=== PATIENT | female | born 2000 | race Caucasian/White ===

== ENCOUNTER 2018-01-10 23:33 | Emergency (ER) | payer OTHER ==
[2018-01-11] MEDS ORDERED: NS 0.9% 1000 ML* 1,000 ML IV ONE (01:43)
[2018-01-11] MEDS ORDERED: Metoclopramide IV* 5 MG/ML 2 ML VIAL IV ONE (01:43)
[2018-01-11] MEDS ORDERED: Ketorolac INJ* 30 MG/ML 1 ML VIAL IV ONE (01:43)
[2018-01-11] MEDS ORDERED: diPHENhydraMINE IV* 50 MG/ML 1 ml VIAL (BENADRYL) IV ONE (01:44)
[2018-01-11 02:41] LABS: ABS Basophils 0.1 10^3/ul (0-0.2); ABS Eosinophils 0.1 10^3/ul (0-0.6); ABS Lymphocytes 2.1 10^3/ul (1.0-4.8); ABS Monocytes 0.6 10^3/ul (0-0.8); ABS Neutrophils 5.6 10^3/ul (1.5-7.7); ABS Nucleated RBC 0 10^3/ul; Eosinophil % 0.6 % (0-6); Hematocrit 43 % (35-47); Hemoglobin 15.1 g/dl (12.0-16.0); Lymphocyte % 25.2 % (25-47); Mean Corpuscular HGB Conc 35 g/dl (31-36); Mean Corpuscular Hemoglobin 31 pg (27-31); Mean Corpuscular Volume 87 fL (80-97); Mean Platelet Volume 9 um3 (7.4-10.4); Nucleated Red Blood Cells % 0.1; Platelet Count 236 10^3/ul (150-450); Red Blood Count 4.93 10^6/ul (4.0-5.4); Red Cell Distribution Width 12 % (10.5-15); White Blood Count 8.4 10^3/ul (3.5-10.8)
[2018-01-11 02:59] LABS: EGFR Non-African American 87.3 (>60)
--- NOTE | 2018-01-11 04:37 | ED ---
Narda Hanson Thomas, scribed for Holli Grant MD on 01/11/18 at 0345 . Headache - HPI Summary HPI Summary: The patient is a 17 year old female presenting with daily posterior headaches for the last three weeks. OTC pain medications do not alleviate her pain. She also complains of nausea and photophobia. She denies numbness, tingling, fever, and vomiting. The patient went to a hospital in her hometown in [place] in the last three weeks. She did not get a CT Brain. She is currently menstruating. - History Of Current Complaint Chief Complaint: EDHeadache Stated Complaint: HEAD/CHEST PAIN Time Seen by Provider: 01/11/18 01:22 Hx Obtained From: Patient Onset/Duration: Started weeks ago, Still Present Timing: Constant Location of Headache: Other: - Posterior Aggravating Factor: Bright Lights Allevating Factors: Nothing Associated Signs And Symptoms: Nausea, Other (Noted In Comments) - Photophobia; NEGATIVE: numbness, tingling, fever, vomiting - Allergies/Home Medications Allergies/Adverse Reactions: Allergies Allergy/AdvReac Type Severity Reaction Status Date / Time No Known Allergies Allergy Verified 01/10/18 23:38 PMH/Surg Hx/FS Hx/Imm Hx Sensory History: Denies: Hx Legally Blind, Hx Deafness EENT History: Denies: Hx Deafness Neurological History: Reports: Hx Headaches Denies: Hx Migraine - Immunization History Date of Influenza Vaccine: has not received Infectious Disease History: No Infectious Disease History: Denies: Traveled Outside the [place] in Last 30 Days - Family History Known Family History: Positive: Other - Migraines - Social History Alcohol Use: Occasionally Substance Use Type: Reports: None Smoking Status (MU): Never Smoked Tobacco Review of Systems Negative: Fever Positive: Photophobia Positive: Nausea. Negative: Vomiting Neurological: Negative - tingling Positive: Headache. Negative: Numbness All Other Systems Reviewed And Are Negative: Yes Physical Exam - Summary Physical Exam Summary: VITAL SIGNS: Reviewed. GENERAL: Patient is a well-developed and nourished female who is lying comfortable in the stretcher. Patient is not in any acute respiratory distress. HEAD AND FACE: No signs of trauma. No ecchymosis, hematomas or skull depressions. No sinus tenderness. EYES: PERRLA, EOMI x 2, No injected conjunctiva, no nystagmus. EARS: Hearing grossly intact. Ear canals and tympanic membranes are within normal limits. MOUTH: Oropharynx within normal limits. NECK: Supple, trachea is midline, no adenopathy, no JVD, no carotid bruit, no c- spine tenderness, neck with full ROM. CHEST: Symmetric, no tenderness at palpation LUNGS: Clear to auscultation bilaterally. No wheezing or crackles. CVS: Regular rate and rhythm, S1 and S2 present, no murmurs or gallops appreciated. ABDOMEN: Soft, non-tender. No signs of distention. No rebound no guarding, and no masses palpated. Bowel sounds are normal. EXTREMITIES: FROM in all major joints, no edema, no cyanosis or clubbing. NEURO: Alert and oriented x 3. No acute neurological deficits. Speech is normal and follows commands. SKIN: Dry and warm Triage Information Reviewed: Yes Vital Signs On Initial Exam: Initial Vitals Temp Pulse Resp BP Pulse Ox 97.8 F 95 18 142/97 100 01/10/18 23:35 01/10/18 23:35 01/10/18 23:35 01/10/18 23:35 01/10/18 23:35 Vital Signs Reviewed: Yes Diagnostics - Vital Signs Vital Signs Temp Pulse Resp BP Pulse Ox 01/11/18 03:12 59 98 01/11/18 03:11 105/69 01/10/18 23:35 97.8 F 95 18 142/97 100 - Laboratory Lab Results: Lab Results 01/11/18 01/11/18 Range/Units 02:20 02:20 WBC 8.4 (3.5-10.8) 10^3/ul RBC 4.93 (4.0-5.4) 10^6/ul Hgb 15.1 (12.0-16.0) g/dl Hct 43 (35-47) % MCV 87 (80-97) fL MCH 31 (27-31) pg MCHC 35 (31-36) g/dl RDW 12 (10.5-15) % Plt Count 236 (150-450) 10^3/ul MPV 9 (7.4-10.4) um3 Neut % (Auto) 66.8 (38-83) % Lymph % (Auto) 25.2 (25-47) % [place] % (Auto) 6.6 (0-7) % Eos % (Auto) 0.6 (0-6) % Baso % (Auto) 0.8 (0-2) % Absolute Neuts (auto) 5.6 (1.5-7.7) 10^3/ul Absolute Lymphs (auto) 2.1 (1.0-4.8) 10^3/ul Absolute Monos (auto) 0.6 (0-0.8) 10^3/ul Absolute Eos (auto) 0.1 (0-0.6) 10^3/ul Absolute Basos (auto) 0.1 (0-0.2) 10^3/ul Absolute Nucleated RBC 0 10^3/ul Nucleated RBC % 0.1 Sodium 139 (133-145) mmol/L Potassium 3.7 (3.5-5.0) mmol/L Chloride 105 (101-111) mmol/L Carbon Dioxide 24 (22-32) mmol/L Anion Gap 10 (2-11) mmol/L BUN 13 (6-24) mg/dL Creatinine 0.84 (0.51-0.95) mg/dL Est GFR ( Amer) 112.3 (>60) Est GFR (Non-Af Amer) 87.3 (>60) BUN/Creatinine Ratio 15.5 (8-20) Glucose 102 H (70-100) mg/dL Calcium 9.8 (8.6-10.3) mg/dL Total Bilirubin 0.50 (0.2-1.0) mg/dL AST 17 (13-39) U/L ALT 14 (7-52) U/L Alkaline Phosphatase 64 (34-104) U/L Total Protein 7.7 (6.4-8.9) g/dL Albumin 4.5 (3.2-5.2) g/dL Globulin 3.2 (2-4) g/dL Albumin/Globulin Ratio 1.4 (1-3) Beta HCG, Quant < 0.60 mIU/mL Result Diagrams: 01/11/18 02:20 01/11/18 02:20 Lab Statement: Any lab studies that have been ordered have been reviewed, and results considered in the medical decision making process. - CT CT Brain CT Interpretation: No Acute Changes - Normal brain. No acute intracranial pathology. No hemorrhage. No obvious infarct or mass. Osseous sstructures are intact. CT Interpretation Completed By: Radiologist - EKG 23:42 Cardiac Rate: NL EKG Rhythm: Sinus Rhythm - at 76 BPM EKG Interpretation: Normal axis. Normal intervals. No ischemic change. Re-Evaluation - Re-Evaluation First Eval Comment: Results discussed. Patient will be discharged. Headache Course/Dx - Course Assessment/Plan: The patient is a 17 year old female presenting with daily posterior headaches for the last three weeks. In the ED course, the patient was given Benadryl, IV fulids, Toradol, and Reglan. Bloodwork and EKG were obtained. CT Brain shows Normal brain. No acute intracranial pathology. No hemorrhage. NO obvious infarct or mass. Osseous structures are intact. The patient was discharged home with neurology follow up. - Diagnoses Provider Diagnoses: Headache Discharge - Sign-Out/Discharge Documenting (check all that apply): Discharge - Discharge Plan Condition: Stable Disposition: HOME Patient Education Materials: General Headache (ED) Referrals: Kirill Irving MD [Medical Doctor] - 3 Days Additional Instructions: Follow up with Dr. Irving, neurology, in three days. Return to the emergency department for any new or worsening symptoms. The documentation as recorded by the Narda carrasquillo Thomas accurately reflects the service I personally performed and the decisions made by , Holli Grant MD.
[2018-01-11 04:41] VITALS: BP 123/85
--- NOTE | 2018-01-11 07:59 | RAD ---
Indication: Headaches. CT of the brain was performed without IV contrast. Ventricular structures are midline. No midline shift is noted. The extra-axial spaces are unremarkable. There is no evidence of intracranial mass or hemorrhage. No other high or low density lesions are identified. Mastoid air cells and paranasal sinuses are unremarkable. IMPRESSION: No intracranial mass or hemorrhage is noted.
== END 2018-01-11 04:40 | disposition home or self-care (01) ==
LOC: ED 23:33
DX: R51 Headache (principal); R11.0 Nausea
CPT/HCPCS: 36415; 70450; 80053; 84702; 85025; 93005; 96374; 96375; 99284; J1200; J1885; J2765

== ENCOUNTER 2018-01-13 19:38 | Emergency (ER) | payer OTHER ==
[2018-01-13 22:00] LABS: Hematocrit 46 % (35-47); Hemoglobin 16.3 g/dl (12.0-16.0); Mean Corpuscular HGB Conc 35 g/dl (31-36); Mean Corpuscular Hemoglobin 30 pg (27-31); Mean Corpuscular Volume 86 fL (80-97); Mean Platelet Volume 8.5 um3 (7.4-10.4); Platelet Count 266 10^3/ul (150-450); Red Blood Count 5.36 10^6/ul (4.0-5.4); Red Cell Distribution Width 12 % (10.5-15); White Blood Count 9.7 10^3/ul (3.5-10.8)
[2018-01-13 22:19] LABS: EGFR Non-African American 75.8 (>60)
[2018-01-13 22:24] LABS: ABS Basophils 0.1 10^3/ul (0-0.2); ABS Eosinophils 0.2 10^3/ul (0-0.6); ABS Lymphocytes 2.9 10^3/ul (1.0-4.8); ABS Monocytes 0.6 10^3/ul (0-0.8); ABS Nucleated RBC 0 10^3/ul; Eosinophil % 1.7 % (0-6); Lymphocyte % 29.5 % (25-47); Nucleated Red Blood Cells % 0.1
--- NOTE | 2018-01-13 22:33 | ED ---
HPI Chest Pain - HPI Summary HPI Summary: 17-year-old female presents with chest pain and headache for the past 2 months. She states the chest pain is intermittent. She states it is a pressure-like on the left side of her chest. Does not radiate anywhere. She denies any shortness of breath. She denies any palpitations. She is nonsmoker. She is on control. She denies any family history of cardiac disease. She has no medical conditions. Nothing makes it better or worse. She is similar also had a headache for the past 2 months. She is a headache in the back of her head. Sclerae throbbing sensation. She tried ibuprofen and Tylenol Excedrin and something a neurologist prescribed without relief. She has had a normal head CT 3 days ago. She was photophobia. She admits to occasional nausea. She admits to sensitivity. She has family history of migraines. She does not want any medication that makes her drowsy. She also states she has not been eating very well. States this has been going on for couple months. She has not seen anyone about this. She denies any weakness. - History of Current Complaint Chief Complaint: EDChestWallPain Time Seen by Provider: 01/13/18 22:06 Pain Intensity: 5 - Allergy/Home Medications Allergies/Adverse Reactions: Allergies Allergy/AdvReac Type Severity Reaction Status Date / Time No Known Allergies Allergy Verified 01/13/18 19:51 Home Medications: Home Medications Norethindrone-E.estradiol-Iron [Junel Fe 11/12 1-20 mg-Mcg] 1 tab PO DAILY [History Confirmed 01/13/18] PMH/Surg Hx/FS Hx/Imm Hx Endocrine/Hematology History: Denies: Hx Anticoagulant Therapy Cardiovascular History: Denies: Hx Hypertension Sensory History: Denies: Hx Legally Blind, Hx Deafness Opthamlomology History: Denies: Hx Legally Blind Neurological History: Reports: Hx Headaches Denies: Hx Migraine - Immunization History Date of Influenza Vaccine: has not received Infectious Disease History: No Infectious Disease History: Denies: Traveled Outside the [place] in Last 30 Days - Family History Known Family History: Positive: Other - Migraines Negative: Cardiac Disease - Social History Alcohol Use: Occasionally Substance Use Type: Reports: None Smoking Status (MU): Never Smoked Tobacco Review of Systems Negative: Fever Positive: Chest Pain Negative: Shortness Of Breath Positive: Headache All Other Systems Reviewed And Are Negative: Yes Physical Exam Triage Information Reviewed: Yes Vital Signs On Initial Exam: Initial Vitals Temp Pulse Resp BP Pulse Ox 98.2 F 128 18 142/108 99 01/13/18 19:49 01/13/18 19:49 01/13/18 19:49 01/13/18 19:49 01/13/18 19:49 Vital Signs Reviewed: Yes Appearance: Positive: Well-Appearing Skin: Positive: Warm, Dry Head/Face: Positive: Normal Head/Face Inspection Eyes: Positive: Normal, EOMI, WALTER, Conjunctiva Clear ENT: Positive: Normal ENT inspection, Pharynx normal, TMs normal Respiratory/Lung Sounds: Positive: Clear to Auscultation, Breath Sounds Present , Other - Nonreproducible chest pain Cardiovascular: Positive: Normal, RRR Abdomen Description: Positive: Nontender, Soft Bowel Sounds: Positive: Present Musculoskeletal: Positive: Normal Neurological: Positive: Normal Psychiatric: Positive: Normal Diagnostics - Vital Signs Vital Signs Temp Pulse Resp BP Pulse Ox 01/13/18 22:11 98.8 F 105 7 99 01/13/18 19:49 98.2 F 128 18 142/108 99 - Laboratory Lab Results: Lab Results 01/13/18 01/13/18 01/13/18 Range/Units 21:45 21:45 21:45 WBC 9.7 (3.5-10.8) 10^3/ul RBC 5.36 (4.0-5.4) 10^6/ul Hgb 16.3 H (12.0-16.0) g/dl Hct 46 (35-47) % MCV 86 (80-97) fL MCH 30 (27-31) pg MCHC 35 (31-36) g/dl RDW 12 (10.5-15) % Plt Count 266 (150-450) 10^3/ul MPV 8.5 (7.4-10.4) um3 Neut % (Auto) 61.8 (38-83) % Lymph % (Auto) 29.5 (25-47) % [place] % (Auto) 6.4 (0-7) % Eos % (Auto) 1.7 (0-6) % Baso % (Auto) 0.6 (0-2) % Absolute Neuts (auto) 6.0 (1.5-7.7) 10^3/ul Absolute Lymphs (auto) 2.9 (1.0-4.8) 10^3/ul Absolute Monos (auto) 0.6 (0-0.8) 10^3/ul Absolute Eos (auto) 0.2 (0-0.6) 10^3/ul Absolute Basos (auto) 0.1 (0-0.2) 10^3/ul Absolute Nucleated RBC 0 10^3/ul Nucleated RBC % 0.1 D-Dimer, Quantitative < 200 (Less Than 230) ng/mL Sodium 140 (133-145) mmol/L Potassium 4.1 (3.5-5.0) mmol/L Chloride 104 (101-111) mmol/L Carbon Dioxide 29 (22-32) mmol/L Anion Gap 7 (2-11) mmol/L BUN 16 (6-24) mg/dL Creatinine 0.95 (0.51-0.95) mg/dL Est GFR ( Amer) 97.5 (>60) Est GFR (Non-Af Amer) 75.8 (>60) BUN/Creatinine Ratio 16.8 (8-20) Glucose 116 H (70-100) mg/dL Calcium 10.3 (8.6-10.3) mg/dL Total Bilirubin 0.60 (0.2-1.0) mg/dL AST 16 (13-39) U/L ALT 13 (7-52) U/L Alkaline Phosphatase 74 (34-104) U/L Troponin I 0.00 (<0.04) ng/mL C-React Prot High Sens 0.53 mg/L Total Protein 8.4 (6.4-8.9) g/dL Albumin 4.9 (3.2-5.2) g/dL Globulin 3.5 (2-4) g/dL Albumin/Globulin Ratio 1.4 (1-3) Result Diagrams: 01/13/18 21:45 01/13/18 21:45 Lab Statement: Any lab studies that have been ordered have been reviewed, and results considered in the medical decision making process. - Radiology chest Xray Interpretation: No Acute Changes Radiology Interpretation Completed By: ED Physician - EKG No standard instances EKG Rhythm: Sinus Rhythm ST Segment: Normal EKG Interpretation: normal sinus rhythm Chest Pain Course/Dx - Course Course Of Treatment: 17-year-old female presents with chest pain and headache for the past 2 months. She states the chest pain is intermittent. She states it is a pressure-like on the left side of her chest. Does not radiate anywhere. She denies any shortness of breath. She denies any palpitations. She is nonsmoker. She is on control. She denies any family history of cardiac disease. She has no medical conditions. Nothing makes it better or worse. She is similar also had a headache for the past 2 months. She is a headache in the back of her head. Sclerae throbbing sensation. She tried ibuprofen and Tylenol Excedrin and something a neurologist prescribed without relief. She has had a normal head CT 3 days ago. She was photophobia. She admits to occasional nausea. She admits to sensitivity. She has family history of migraines. She does not want any medication that makes her drowsy. She also states she has not been eating very well. States this has been going on for couple months. She has not seen anyone about this. She denies any weakness. On exam normal physical exam. Lungs clear to auscultation. Reproducible chest pain. Normal neuro exam. Has just had a workup for headache will focus on the chest pain as a headache better than previous time seen here. Chest x-ray normal. D-dimer negative. EKG normal. Troponin negative. We'll have follow-up with primary about potential eatting disorder and chest pain. We'll give referral for neurology of bad headache. Patient understands agrees plan. - Chest Pain Differential Diagnosis/HQI/PQRI: Chest Wall, Lower Respiratory Infection, Pulmonary Embolism - Diagnoses Provider Diagnoses: Chest pain, Headache Discharge - Sign-Out/Discharge Documenting (check all that apply): Discharge - Discharge Plan Condition: Good Disposition: HOME Patient Education Materials: Noncardiac Chest Pain (ED), General Headache (ED) Referrals: No Primary Care Phys,NOPCP [Primary Care Provider] - Ritika Lawrence MD [Medical Doctor] - Additional Instructions: Follow up with neurology about headache Take Tylenol or ibuprofen every 6 hours for pain Follow up with primary Return to ED if develop any new or worsening symptoms - Billing Disposition and Condition Condition: GOOD Disposition: HOME
[2018-01-14 00:10] VITALS: BP 107/67
--- NOTE | 2018-01-14 07:13 | RAD ---
HISTORY: Chest pain COMPARISONS: None VIEWS: 4: Frontal dual-energy and lateral views of the chest. FINDINGS: CARDIOMEDIASTINAL SILHOUETTE: The cardiomediastinal silhouette is normal. SHRUTI: The shruti are normal. PLEURA: The costophrenic angles are sharp. No pleural abnormalities are noted. LUNG PARENCHYMA: The lungs are clear. ABDOMEN: The upper abdomen is clear. There is no subphrenic gas. BONES AND SOFT TISSUES: No bone or soft tissue abnormalities are noted. OTHER: None. IMPRESSION: NO ACTIVE CARDIOPULMONARY DISEASE.
== END 2018-01-14 00:18 | disposition home or self-care (01) ==
LOC: ED 19:38
DX: R07.9 Chest pain, unspecified (principal); R51 Headache
CPT/HCPCS: 36415; 71046; 80053; 84484; 85025; 85379; 86141; 93005; 99282